=== PATIENT | male | born 1970 | race Caucasian/White ===

== ENCOUNTER 2016-12-21 18:20 | Emergency (ER) | payer MEDICARE, MEDICAID ==
[~2016-12-21] VITALS: Ht 177.8 cm; Wt 90.9 kg
[2016-12-21 18:29] VITALS: BP 119/76; PULSE 70; RESP 12; O2SAT 98
[2016-12-21 19:26] LABS: BASOPHILS % (AUTO) 0.3 % (0-3); EOSINOPHILS % (AUTO) 1.8 % (0-5); MONOCYTES % (AUTO) 11.9 % (4-12); Mean Corpuscular Hemoglobin 29.7 pg (27.0-35.0); Mean Corpuscular Volume 86.1 fL (81-100); Platelet Count 138 bil/L (150-400)
[2016-12-21 19:47] LABS: TROPONIN T < 0.010 ug/L (0.0-0.011)
[2016-12-21 19:59] LABS: Magnesium 1.6 mg/dL (1.6-2.6)
--- NOTE | 2016-12-21 20:15 | DRSVH ---
PROCEDURE: X-RAY CHEST ONE VIEW, PORTABLE ([id number]) INDICATIONS: chest pain TECHNIQUE: One view of the chest was acquired. COMPARISON: None. FINDINGS: Surgical changes and devices: None. Lungs and pleura: No pleural effusions or pneumothorax. Lungs are clear. Mediastinum: Mediastinal contours appear normal. Heart size is normal. Bones and chest wall: No suspicious bony lesions. Overlying soft tissues appear unremarkable. IMPRESSION: 1. No acute cardiopulmonary disease. Dictated by: Jose Maria Hatch M.D. on 12/21/2016 at 20:09 Approved by: Jose Maria Hatch M.D. on 12/21/2016 at 20:09
[2016-12-21 20:50] VITALS: BP 125/73; PULSE 68; RESP 15; O2SAT 99
[2016-12-21] MEDS ORDERED: 0.9% Sodium Chloride 1,000 ML IV ONE (21:20)
[2016-12-21 21:30] VITALS: BP 116/71; PULSE 62; RESP 14; O2SAT 100
--- NOTE | 2016-12-21 21:32 | ED.REPORT ---
HPI-General Illness Date of Service Dec 21, 2016 ED Provider: Gabino Diaz MD Shyam Andersen is a 46 year old man with a PMH of CKD III, and DM2 currently diet controlled with a last A1c of 5.7. He presents with a 5 day history of nausea vomiting and abdominal pain, he states that his entire family had similar symptoms but while they have gotten better over the weekend he continues to feel miserable. He states that his last episode of vomiting and diarrhea were yesterday, but the his abdominal pain remains and that he now occasionally feels twinges of chest pain which prompted him to present to urgent care who conducted and ECG which revealed inverted T waves in his anterior leads, thus the urgent care sent him over to the ED for further evaluation. Nursing Notes Stated Complaint: CHEST PAIN Chief Complaint: Chest Pain Nursing Notes Reviewed: Yes Allergies: Coded Allergies: NSAIDS (Non-Steroidal Anti-Inflamma (Verified Adverse Reaction, Intermediate, kidney disease, 12/21/16) nabumetone (Verified Adverse Reaction, Intermediate, headache, 12/21/16) General Time Seen by MD: 21:15 Chief Complaint Abdominal pain Hx Obtained From: Patient Sudden in Onset?: No Onset Occurred: 5 days ago Symptom Duration: Since onset Location: : Abdomen Quality: Burning Severity: Current: Mild Severity: Maximum: Moderate Recent Healthcare: Recent doctor visit Similar Sx Previous: No Review of Systems Full Review of Systems Constitutional: Reports: Weakness - generalized Cardiovascular: Reports: Chest pain GI: Reports: Abdominal pain, Diarrhea, Nausea, Vomiting Complete sys rev & neg: except as marked. Physical Exam Gen: A/O x3 pleasant cooperative ill appearing male in mild acute distress secondary to abdominal pain Neck: Supple, non tender, no lymphadenopathy HEENT: PERRL, EOMI, no scleral icterus, no conjunctival pallor CV: RRR, no murmurs rubs or gallops Resp: Lungs CTA BL, no wheezing rales or rhonchi Abdomen: Diffusely tender to palpation most acutely in epigastric region, BS+ 4Q , no organomegally Extr: No cyanosis clubbing or edema Neuro: CN 2-12 grossly intact Vital Signs Vital Signs Date Time Temp Pulse Resp B/P Pulse Ox O2 Delivery O2 Flow Rate FiO2 12/21/16 23:23 67 16 121/67 100 Room Air 12/21/16 21:30 62 14 116/71 100 Room Air 12/21/16 20:50 68 15 125/73 99 Room Air 12/21/16 18:29 36.4 70 12 119/76 98 Initial VS: Reviewed Interpretation & Diagnostics Lab Results Interpretation Result Diagram: 12/21/16191112/21/161911 Test 12/21/16 19:12 12/21/16 20:12 12/21/16 22:16 White Blood Count 10.6th/mm3 (3.8-10.1) Red Blood Count 4.74mil/mm3 (4.40-5.80) Hemoglobin 14.1g/dL (13.8-17.2) Hematocrit 40.8% (41.0-50.0) Mean Corpuscular Volume 86.1fL (81-100) Mean Corpuscular Hemoglobin 29.7pg (27.0-35.0) Mean Corpuscular Hemoglobin Concent 34.6% (32.0-37.0) Red Cell Distribution Width 12.1% (12.3-15.4) Platelet Count 138bil/L (150-400) Neutrophils (%) (Auto) 62.0% (40-74) Lymphocytes (%) (Auto) 23.8% (14-46) Monocytes (%) (Auto) 11.9% (4-12) Eosinophils (%) (Auto) 1.8% (0-5) Basophils (%) (Auto) 0.3% (0-3) Sodium Level 140mEq/L (134-144) Potassium Level 3.7mEq/L (3.5-5.2) Chloride Level 103mEq/L (97-108) Carbon Dioxide Level 20mmol/L (18-29) Blood Urea Nitrogen 20mg/dL (6-24) Creatinine 1.24mg/dL (0.76-1.27) Estimat Glomerular Filtration Rate 67mL/min (>59) Glucose Level 92mg/dL (60-99) Calcium Level 8.7mg/dL (8.5-10.1) Magnesium Level 1.6mg/dL (1.6-2.6) Total Bilirubin 0.5mg/dL (0.0-1.2) Aspartate Amino Transf (AST/SGOT) 19U/L (0-50) Alanine Aminotransferase (ALT/SGPT) 17U/L (0-44) Alkaline Phosphatase 48U/L (25-150) Total Protein 6.5g/dL (6.4-8.4) Albumin 3.9g/dL (3.4-5.0) Hold Kelley Top Tube Received (Received) Hold Urine Received (Received) Troponin T 0.010ug/L (0.0-0.011) ECG Interpretation Interpreted by: ED physician Abnormal T wave or ST segment: T-waves flat-inv ant wall, T-waves flat-inv inf wall Repeat ECG: Repeat ECG unchanged X-Ray Chest Interpretation Interpretation / Wet Read by: Interpret - Radiologist NL X-Ray Chest Findings: No infiltrate, Normal lung markings, Normal heart size, Normal mediastinum, Normal great vessels, No fracture, Soft tissues normal , No acute disease, No sail sign, NL cardiothymic shadow Re-Eval/Medical Decision Med Decision/Clinical Course Patient with several days of GI illness with sick family that has recovered while he has not. Based upon CBC, history, and clinical exam patient does not appear to be suffering from a bacterial infection. Most likely this is a viral gastroenteritis which has taken him longer to clear because of immune suppression from underlying diabetes and kidney disease. Abdominal pain most likely with a significant musculoskeletal component from wretching and valsalvas from Vomiting and diarrhea. No old ECGs to compare to see if inverted T waves are a new finding, first trop negative. Second Trop negative, repeat ECG unchanged. Patient was able to tolerate PO intake without nausea prior to DC. Patient was given follow up instructions and return precautions. Counseled Regarding: Diagnosis, Lab results, Need for follow-up, When/why to return to ED Discharge & Departure Shift Change Sign-Out Patient Care Transferred: No Discussed Complaint(s): Yes Laboratory Evaluation: Lab evaluation discussed Imaging Studies: Imaging discussed Response to Therapy: Improved Primary Impression: Viral gastroenteritis Disposition: Home Discharge Condition Condition: Stable Patient Instructions: Gastroenteritis (ED) Additional Instructions: At this time it appears that you are suffering from a viral gastroenteritis. The reason that your family recovered before you did is most likely due to your underlying diabetes which no matter how well controlled will suppress your immune system. The abdominal pain you are experiencing is most likely due to the retching and pushing that you had to do from the vomiting and diarrhea. Your lab work is very reassuring that there is no acutely dangerous situation going on with your heart, however, the electrical abnormality that we saw( inverted T waves) should be evaluated further by your PCP, most likely with a stress test to see how your heart performs under stress. Be sure to get plenty of rest and stay hydrated for the next week or until you feel fully recovered. If you get sharp chest pain with associated chest pressure , your nausea and diarrhea worsen or fail to improve, you notice blood in your stool or vomit, or if you are unable to eat or drink for an extended period please contact your PCP, go to the urgent care, or come back to the ED for further evaluation. Referrals: Kisha Tracy PA-C (PCP) Attending Statement The patient was seen and examined together with Dr. Payam Nunes and I agree with the history, exam and plan as outlined in the note above. copies to: Kisha Tracy PA-C, David E DO Dec 21, 2016 21:32 Gabino Diaz MD Dec 22, 2016 03:21
[2016-12-21 23:23] VITALS: BP 121/67; PULSE 67; RESP 16; O2SAT 100
[2016-12-22] MEDS ORDERED: Sodium Chloride LOK Flush 10 mL Syringe IVFLUSH SCH (00:30)
== END 2016-12-21 23:24 | disposition home or self-care (01) ==
LOC: SED 18:20
DX: A08.4 Viral intestinal infection, unspecified (principal); E11.22 Type 2 diabetes mellitus with diabetic chronic kidney disease; N18.3 Chronic kidney disease, stage 3 (moderate)
CPT/HCPCS: 36415; 71010; 80053; 82948; 83735; 84484; 85025; 87804; 93005; 96360; 99285; J7030

== ENCOUNTER 2016-12-30 00:35 | Emergency (ER) | payer MEDICARE, MEDICAID ==
[~2016-12-30] VITALS: Ht 177.8 cm; Wt 90.0 kg
--- NOTE | 2016-12-30 00:45 | ED.REPORT ---
HPI-General Illness Date of Service Dec 30, 2016 ED Provider: Demetri Harkins MD 46 year old male with a history of CKD stage 3, DM, and gout presents to the ER via EMS after a syncopal fall while urinating just prior to arrival. He complains of neck pain, back pain, and left elbow pain secondary to the fall. Immediately prior to the event he experienced a hot sensation in his face and head, intense abdominal pain, and shortness of breath. Associated symptom of urinary hesitancy, and decreased urine output in recent days, though he denies dysuria. EMS reports that the patient was hypotensive in the field. Three days ago the patient was ill with nausea, vomiting, and diarrhea. At that time he was seen here in the ER, given fluids and sent home. Nursing Notes Stated Complaint: SYNCOPE Nursing Notes Reviewed: Yes Allergies: Coded Allergies: NSAIDS (Non-Steroidal Anti-Inflamma (Verified Adverse Reaction, Intermediate, kidney disease, 12/21/16) nabumetone (Verified Adverse Reaction, Intermediate, headache, 12/21/16) Scheduled PRN Ondansetron ODT (Ondansetron ODT) 8 Mg Tab.rapdis 8 MG PO QID PRN PRN For Nausea General Time Seen by MD: 00:45 Chief Complaint Other (Syncopal Fall) Hx Obtained From: Patient Arrived By: Ambulance Sudden in Onset?: Yes Onset Occurred: Just prior to arrival Caused by: Fall on ground Context: Occurred at: Home injury Location: : Back: Elbow left: Neck Quality: Painful Severity: Current: Moderate Severity: Maximum: Moderate Associated with: Reports: Abdominal pain, Neck pain, Shortness of breath Additional Notes: Back Pain Context Related History: Reports Diabetes mellitus Recent Healthcare: Recent doctor visit Similar Sx Previous: No Past Medical History Past Medical History Gout Reports: Diabetes mellitus Reports: Kidney disease (Stage 3) Smoking History Unknown if Ever Smoker Review of Systems Full Review of Systems Constitutional: Denies: Chills, Fever Respiratory: Reports: Shortness of breath, Denies: Non-productive cough Cardiovascular: Denies: Chest pain GI: Reports: Abdominal pain, Denies: Nausea, Vomiting Male: Reports Urination decreased, Denies Dysuria Musculoskeletal: Reports: Back pain, Joint pain (Left Elbow), Lumbar pain, Neck pain Neurologic: Reports: Syncope Complete sys rev & neg: except as marked. Physical Exam Vital Signs Vital Signs Date Time Temp Pulse Resp B/P Pulse Ox O2 Delivery O2 Flow Rate FiO2 12/30/16 01:41 73 15 126/82 100 Room Air 12/30/16 00:46 36.6 71 18 120/78 100 Room Air Initial VS: Reviewed Head / Eyes: Atraumatic, Normocephalic Abdomen / GI: Soft, Non-tender, No guarding, No rebound, No distention Neurologic: Alert, Oriented, Nonfocal Psychiatric: Mood/affect normal, Behavior normal, Normal thought content General/Constitutional: Awake, Alert, No acute distress, Well developed, Well nourished Neck: No tracheal deviation Trauma - Neck Specific: Positive: Immobilized - C Collar Respiratory / Chest: Breath sounds NL, No respiratory distress, No rales, No rhonchi, No wheezing Cardiovascular: Heart rate NL, Regular rhythm, Heart sounds NL, Cap refill not delayed, Peripheral circulation NL Upper Extremities Upper Extremity / MS: Full range of motion, Neurologic intact, Vascular intact Lower Extremity / Pelvis / MS: Inspection NL, No swelling, Non-tender, No erythema, No deformity, Neurologic intact, Vascular intact, No edema Skin: Warm, Intact Color / Condition: Positive: Diaphoresis present Interpretation & Diagnostics Lab Results Interpretation Result Diagram: 12/30/16 0150 12/30/16 0150 Test 12/30/16 01:50 12/30/16 03:00 12/30/16 04:06 White Blood Count 16.6th/mm3 (3.8-10.1) Red Blood Count 4.47mil/mm3 (4.40-5.80) Hemoglobin 13.1g/dL (13.8-17.2) Hematocrit 38.8% (41.0-50.0) Mean Corpuscular Volume 86.8fL (81-100) Mean Corpuscular Hemoglobin 29.3pg (27.0-35.0) Mean Corpuscular Hemoglobin Concent 33.8% (32.0-37.0) Red Cell Distribution Width 11.9% (12.3-15.4) Platelet Count 195bil/L (150-400) Neutrophils (%) (Auto) 72.2% (40-74) Lymphocytes (%) (Auto) 15.1% (14-46) Monocytes (%) (Auto) 10.8% (4-12) Eosinophils (%) (Auto) 0.5% (0-5) Basophils (%) (Auto) 0.6% (0-3) Prothrombin Time 11.4sec (8.1-12.5) Prothromb Time International Ratio 1.06ratio Activated Partial Thromboplast Time 27.3sec (22.8-33.0) D-Dimer < 0.50mg/L FEU (<0.50) Sodium Level 139mEq/L (134-144) Potassium Level 4.5mEq/L (3.5-5.2) Chloride Level 102mEq/L (97-108) Carbon Dioxide Level 21mmol/L (18-29) Blood Urea Nitrogen 15mg/dL (6-24) Creatinine 1.46mg/dL (0.76-1.27) Estimat Glomerular Filtration Rate 55mL/min (>59) Glucose Level 131mg/dL (60-99) Calcium Level 8.9mg/dL (8.5-10.1) Magnesium Level 1.9mg/dL (1.6-2.6) Total Bilirubin 0.5mg/dL (0.0-1.2) Aspartate Amino Transf (AST/SGOT) 14U/L (0-50) Alanine Aminotransferase (ALT/SGPT) 18U/L (0-44) Alkaline Phosphatase 60U/L (25-150) Pro-B-Type Natriuretic Peptide 137.4pg/mL (0-121) Total Protein 6.8g/dL (6.4-8.4) Albumin 3.6g/dL (3.4-5.0) Hold Kelley Top Tube Received (Received) Urine Color Straw (YELLOW) Urine Appearance Clear (CLEAR,HAZY) Urine pH 6.5 (5.0-8.0) Urine Specific [place] 1.005 (1.003-1.035) Urine Protein Tracemg/dL (NEG,TRACE) Urine Glucose (UA) Negativemg/dL (NEGATIVE) Urine Ketones Negativemg/dL (NEGATIVE) Urine Occult Blood Small (NEGATIVE) Urine Nitrite Negative (NEGATIVE) Urine Bilirubin Negative (NEGATIVE) Urine Urobilinogen Normalmg/dL (NORMAL) Urine Leukocyte Esterase Negative (NEGATIVE) Urine RBC 0-2/hpf (0-2) Urine WBC 0-5/hpf (0-5) Urine Epithelial Cells Occasional/hpf (NONE-MOD) Urine Crystals None seen (NONE SEEN) Urine Bacteria Few/hpf (NONE-FEW) Urine Hyaline Casts None/lpf (NONE) Urine Granular Casts None seen (NONE SEEN) Urine Waxy Casts None seen (NONE SEEN) Urine Red Blood Cell Casts None seen (NONE SEEN) Urine White Blood Cell Casts None seen (NONE SEEN) Urine Mucus None seen (None Seen) Urine Trichomonas None seen (NONE SEEN) Urine Yeast None (NONE SEEN) Urinalysis Comment None Urine Culture Reflexed Not indicated Troponin T 0.010ug/L (0.0-0.011) ECG Interpretation ECG Interpretation: Sinus rhythm, rate 64 Time: 01:14 Interpreted by: ED physician X-Ray Chest Interpretation Chest Xray Interpretation: Increased density in right apex, changed from previous. Normal heart size. No infiltrate. No pneumothorax. No rib injury. View: Portable, 1 view Interpretation / Wet Read by: Wet read ED physician X-Ray Interpretation Xray Interpretation: Lordosis of the lower lumbar spine. No fracture or subluxation. Study Performed: LUMBAR SPINE Interpretation / Wet Read by: Wet read ED physician Xray Interpretation: No fracture. X-Ray Ordered: Elbow left Interpretation / Wet Read by: Wet read ED physician CT Head Interpretation CONCLUSION: Normal CT of the head without contrast. Electronically signed by Renny Garrett MD Study: Head CT no contrast Interpretation / Wet Read by: Interpret - Radiologist CT C-Spine Interpretation CONCLUSION: No acute findings. DJD of the spine. Electronically signed by Renny Garrett MD Study type: CT no contrast Interpretation / Wet Read by: Interpret - Radiologist Re-Eval/Medical Decision Med Decision/Clinical Course 46-year-old presents after syncopal episode, occurring after urination and with some intense abdominal pain antecedent. Although S resolved. He is negative Y enzymes 2, has a negative d-dimer, and fairly clearly had a vagal episode in association with GI pain. He is improved after hydration here. Discharged in stable condition for follow-up with PCP. Prompt return if recurrent. Moderate elevation of creatinine noted. Follow up with PCP and maintain hydration. Source of Hx: Old records Time of Eval: 04:55 Re-Evaluation/Progress Note: Discussed lab and radiology results and plan to discharge. Patient is amenable to the plan. Return precautions given. All other questions addressed. Counseled Regarding: Diagnosis, Lab results, Need for follow-up, When/why to return to ED Discharge & Departure Primary Impression: Syncope Additional Impressions: Acute kidney injury Gastroenteritis Disposition: Home Discharge Condition All VS Reviewed: Yes Condition: Stable Patient Instructions: Gastroenteritis (DC), Syncope (DC) Additional Instructions: We have no evidence that your faint was caused by a cardiac issue or a clot issue. It appears to be the case that the abdominal cramping caused your blood pressure to go down and your heart to slow down, resulting in the faint. Follow-up with your doctor in the office. Treatment plenty of fluids and stay well-hydrated. Return for any immediate issues, particularly recurrent episodes. Referrals: Kisha Tracy PA-C (PCP) Scribe Attestation Portions of this note were transcribed by Vj Lucas. I, Dr. Harkins, personally performed the history, physical exam and medical decision-making; I reviewed and confirmed the accuracy of the information in the transcribed note. Signed by: Tu Tariq. 12/30/2016 - 05:03 copies to: Kisha Tracy PA-C, Christopher W MD Dec 30, 2016 00:45 VJ LUCAS Dec 30, 2016 00:52
[2016-12-30 00:46] VITALS: BP 120/78; PULSE 71; RESP 18; O2SAT 100
[2016-12-30] MEDS ORDERED: 0.9% Sodium Chloride 1,000 ML IV ONE ×2 (00:50→01:24)
[2016-12-30] MEDS ORDERED: Pantoprazole 4 mg/mL 10 mL Inj IVPUSH ONE (01:25)
[2016-12-30] MEDS ORDERED: Ondansetron 2 mg/mL 2 mL Inj IVPUSH ONE ×2 (01:25→01:55)
[2016-12-30 01:41] VITALS: BP 126/82; PULSE 73; RESP 15; O2SAT 100
[2016-12-30] MEDS ORDERED: Alum-Mag Hydrox-Simeth 30 mL Suspension PO ONE (01:55)
[2016-12-30 02:03] LABS: BASOPHILS % (AUTO) 0.6 % (0-3); EOSINOPHILS % (AUTO) 0.5 % (0-5); MONOCYTES % (AUTO) 10.8 % (4-12); Mean Corpuscular Hemoglobin 29.3 pg (27.0-35.0); Mean Corpuscular Volume 86.8 fL (81-100); NEUTROPHILS % (AUTO) 72.2 % (40-74); Platelet Count 195 bil/L (150-400)
[2016-12-30 02:23] LABS: D-Dimer < 0.50 mg/L FEU (<0.50); INR 1.06 ratio
[2016-12-30 02:27] LABS: TROPONIN T 0.01 ug/L (0.0-0.011)
[2016-12-30 02:38] LABS: Magnesium 1.9 mg/dL (1.6-2.6)
[2016-12-30 03:28] LABS: APPEARANCE,URINE CLEAR (CLEAR,HAZY); COLOR,URINE STRAW (YELLOW); OCCULT BLOOD,URINE SMALL (NEGATIVE); PH,URINE 6.5 (5.0-8.0); UROBILINOGEN,URINE NORMAL (NORMAL)
[2016-12-30] MEDS ORDERED: ONDA8TAB10 PO (05:00)
--- NOTE | 2016-12-30 09:07 | DRSVH ---
PROCEDURE: X-RAY CHEST ONE VIEW, PORTABLE ([id number]) INDICATIONS: syncope TECHNIQUE: One view of the chest was acquired. COMPARISON: [facility], CR, XR CHEST 1VW (PORTABLE), 12/21/2016, 19:01. FINDINGS: Surgical changes and devices: None. Lungs and pleura: No pleural effusions or pneumothorax. Lungs are clear. Mediastinum: Mediastinal contours appear normal. Heart size is normal. Bones and chest wall: No suspicious bony lesions. Overlying soft tissues appear unremarkable. IMPRESSION: No acute cardiopulmonary disease. Dictated by: Ramakrishna Garsia [facility] Interpreted: Yazmin Layne MD on 12/30/2016 at 9:07 Transcribed by: MAGALY on 12/30/2016 at 9:07 Approved by: Yazmin Layne MD, PhD on 12/30/2016 at 16:27
--- NOTE | 2016-12-30 09:07 | DRSVH ---
PROCEDURE: X-RAY LEFT ELBOW COMPLETE, MINIMUM THREE VIEWS ([id number]) INDICATIONS: fall/syncope TECHNIQUE: 3 views of the elbow were acquired. COMPARISON: None. FINDINGS: Bones: No fractures or dislocations. No suspicious bony lesions. Soft tissues: No elbow joint effusion. No suspicious soft tissue calcifications. IMPRESSION: No displaced fracture seen. If there is continued pain, followup exam or additional trung ging such as MRI or CT could be performed for further assessment. Dictated by: Ramakrishna Garsia [facility] Interpreted: Yazmin Layne MD on 12/30/2016 at 9:07 Transcribed by: MAGALY on 12/30/2016 at 9:07 Approved by: Yazmin Layne MD, PhD on 12/30/2016 at 16:27
--- NOTE | 2016-12-30 09:11 | DRSVH ---
PROCEDURE: X-RAY LUMBAR SPINE, 2 OR 3 VIEW INDICATIONS: fall/syncope TECHNIQUE: 3 views of the lumbar spine were acquired. COMPARISON: None. FINDINGS: Bones: 5 [id number] vertebrae are present. There is normal bony alignment. No vertebral body c ompression fractures. No suspicious bony lesions. Mild early degenerative change. Soft tissues: Overlying bowel gas pattern is normal. No suspicious soft tissue calcifications. IMPRESSION: No displaced fracture seen. If there is continued pain, followup exam or additional trung ging such as MRI or CT could be performed for further assessment. Dictated by: Ramakrishna Garsia [facility] Interpreted: Yazmin Layne MD on 12/30/2016 at 9:10 Transcribed by: MAGALY on 12/30/2016 at 9:11 Approved by: Yazmin Layne MD, PhD on 12/30/2016 at 16:27
--- NOTE | 2016-12-30 10:49 | DRSVH ---
PROCEDURE: CT CERVICAL SPINE WITHOUT CONTRAST ([id number]) INDICATIONS: fall/syncope TECHNIQUE: Noncontrast 3 mm thick sections acquired from the skull base to the T4 level. Sagittal and coronal r eformats were then constructed. For radiation dose reduction, the following was used: automated exp osure control, adjustment of mA and/or kV according to patient size. COMPARISON: None. FINDINGS: Image quality: Excellent. Bones: No fractures or dislocations. Visualized superior ribs are intact. Multilevel degenerative d isc disease and facet arthropathy are noted. Soft tissues: Prevertebral soft tissues are normal in thickness. No paravertebral hematomas. No ap ical pneumothoraces. IMPRESSION: No fracture. No acute osseous lesion. If symptoms and/or clinical suspicion for patholog y persists, evaluation with MRI may be helpful for further assessment. Dictated by: Yazmin Layne MD, PhD on 12/30/2016 at 10:45 Approved by: Yazmin Layne MD, PhD on 12/30/2016 at 10:48
--- NOTE | 2016-12-30 11:07 | DRSVH ---
PROCEDURE: CT BRAIN WITHOUT CONTRAST ([id number]) INDICATIONS: fall/syncope TECHNIQUE: Noncontrast 4.5 mm thick angled axial sections acquired from the foramen magnum to the vertex, with c oronal reformats. COMPARISON: None. FINDINGS: Image quality: Excellent. CSF spaces: Basal cisterns are patent. No extra-axial fluid collections. Ventricles are normal in size and shape. Brain: No midline shift. No intracranial masses or hemorrhage. [place]-white matter interface is norm al. Skull and face: Calvarium and visualized facial bones are intact, without suspicious lesions. Sinuses: Visualized sinuses and mastoids are clear. IMPRESSION: No acute intracranial disease process. Dictated by: Yazmin Layne MD, PhD on 12/30/2016 at 11:05 Approved by: Yazmin Layne MD, PhD on 12/30/2016 at 11:06
== END 2016-12-30 05:20 | disposition home or self-care (01) ==
LOC: SED 00:35 → EDBD 00:35 → SED 05:20
DX: R55 Syncope and collapse (principal); N17.9 Acute kidney failure, unspecified; K52.9 Noninfective gastroenteritis and colitis, unspecified; E11.22 Type 2 diabetes mellitus with diabetic chronic kidney disease; N18.3 Chronic kidney disease, stage 3 (moderate)
CPT/HCPCS: 36415; 70450; 71010; 72100; 72125; 73080; 80053; 81000; 83735; 83880; 84484; 85025; 85378; 85610; 85730; 93005; 96361; 96374; 96375; 99285; J2405; J7030